=== PATIENT | female | born 1965 ===

== ENCOUNTER 2017-02-04 12:21 | Inpatient (IN) | payer SELFPAY ==
--- NOTE | 2017-02-04 13:06 | C.PDOC ---
History Of Present Illness 51 year old female presents to the ED with complaints of blood in sputum for one day with generalized weakness. As per patient, when she was 22 years old she received a 6 month treatment for TB. Patient also notes a singular episode of blood in sputum one year ago. She denies nausea, vomiting, fever, chills, sick contacts, recent travel, or chest pain. Time Seen by Provider: 02/04/17 12:59 Chief Complaint (Nursing): Flu-like Symptoms History Per: Patient, Family ( ) History/Exam Limitations: no limitations Onset/Duration Of Symptoms: Hrs Current Symptoms Are (Timing): Still Present Location Of Pain: None Sick Contacts (Context): None Associated Symptoms: Cough. denies: Fever, Chills, Sore Throat, Nausea, Vomiting Recent travel outside of the [place]: No Past Medical History Reviewed: Historical Data, Nursing Documentation, Vital Signs Vital Signs: Last Vital Signs Temp 98.5 F 02/04/17 17:12 Pulse 79 02/04/17 17:12 Resp 20 02/04/17 17:12 BP 128/74 02/04/17 17:12 Pulse Ox 97 02/04/17 18:13 Family History: States: Unknown Family Hx - Social History Hx Alcohol Use: No Hx Substance Use: No - Immunization History Hx Tetanus Toxoid Vaccination: No Hx Influenza Vaccination: No Hx Pneumococcal Vaccination: No Review Of Systems Constitutional: Positive for: Weakness (generalized weakness ). Negative for: Fever, Chills Cardiovascular: Negative for: Chest Pain, Palpitations Respiratory: Positive for: Cough. Negative for: Shortness of Breath Gastrointestinal: Negative for: Nausea, Vomiting Physical Exam - Physical Exam Appears: Non-toxic, No Acute Distress Skin: Warm, Dry, No Pale, No Rash Head: Atraumatic, Normacephalic, No Tenderness Eye(s): bilateral: Normal Inspection, PERRL, EOMI Ear(s): Bilateral: Normal Oral Mucosa: Moist Throat: Normal, No Erythema, No Exudate Neck: Normal ROM, Supple Chest: Symmetrical, No Deformity Cardiovascular: Rhythm Regular, No Murmur Respiratory: No Rales, No Rhonchi, No Wheezing, Other (clear to auscultation bilaterally ) Gastrointestinal/Abdominal: Soft, No Tenderness, No Distention, No Guarding, No Rebound Extremity: Normal ROM, No Tenderness Neurological/Psych: Oriented x3 ED Course And Treatment - Laboratory Results Result Diagrams: 02/04/17 14:03 02/04/17 14:03 O2 Sat by Pulse Oximetry: 97 (RA) - Radiology CXR: Interpreted by Me, Read By Radiologist - CT Scan/US Angio CT Other Rad Studies (CT/US): Read By Radiologist, Radiology Report Reviewed Progress Note: CXR, Chest CT, and blood work was ordered. Patient was given toradol and IV fluids. Progress - Re-Evaluation Re-evaluation Note: 02/04/17 18:12 D/W DR Thanh ZAMORA ADMIT TO DR GANT. 02/04/17 18:36 VIA TRANS PT ADVISED IS CONSIDERED HIGHLY CONTAGIOUS, ASSUMED TO HAVE TB UNTIL PROVEN OTHERWISE. PT REQUIRES ISOLATION AND ADMISSION FOR EVALUATION POSSIBLE TB - Data Reviewed Data Reviewed: Lab, Diagnostic imaging, Old records Disposition Counseled Patient/Family Regarding: Studies Performed, Diagnosis - Disposition Disposition: HOSPITALIZED Disposition Time: 18:12 Condition: STABLE Forms: [employer] (Micronesian) - POA Present On Arrival: None - Clinical Impression Clinical Impression: Hemoptysis, Abnormal chest CT - Scribe Statement The provider has reviewed the documentation as recorded by the Scribe Krista Cadena All medical record entries made by the Scribe were at my direction and personally dictated by me. I have reviewed the chart and agree that the record accurately reflects my personal performance of the history, physical exam, medical decision making, and the department course for this patient. I have also personally directed, reviewed, and agree with the discharge instructions and disposition. Decision To Admit - Pt Status Changed To: Hospital Disposition Of: Inpatient - Admit Certification Admit to Inpatient:: After my assessment, the patient will require hospitalization for at least two midnights. This is because of the severity of symptoms shown, intensity of services needed, and/or the medical risk in this patient being treated as an outpatient. - InPatient: Physician Admission Certification: I certify that this patient requires 2 or more midnights of care for the following reason:: SEE NOTE - . Bed Request Type: Regular Admitting Physician: Juan Carlos Gant Patient Diagnosis: Hemoptysis, Abnormal chest CT
[2017-02-04] MEDS ORDERED: Sodium Chloride 0.9% 1,000 ML ONE (14:08)
[2017-02-04] MEDS: Sodium Chloride 0.9% 1,000 ML IV SCH ×2 (14:12→22:34)
[2017-02-04 14:16] LABS: BASO % 0.3 % (0.0-2.0); EOS # 0.2 K/uL (0.0-0.7); EOS % 2.3 % (0.0-4.0); HEMATOCRIT 39.8 % (34.0-47.0); LYMPH # 2.4 K/uL (1.0-4.3); LYMPH % 36.1 % (20.0-40.0); MEAN CELL VOLUME 86.4 fL (81.0-99.0); MEAN CORPUSCULAR HEMOGLOBIN 29.5 pg (27.0-31.0); MEAN CORPUSCULAR HGB CONC 34.1 g/dL (33.0-37.0); MEAN PLATELET VOLUME 7.1 fL (7.2-11.7); MONO # 0.3 K/uL (0.0-0.8); MONO % 4.1 % (0.0-10.0); RED CELL DISTRIBUTION WIDTH 12.9 % (11.5-14.5); WHITE BLOOD COUNT 6.6 K/uL (4.8-10.8)
[2017-02-04 14:26] LABS: CHLORIDE 102 mmol/L (98-107); POTASSIUM 3.6 mmol/L (3.6-5.2); SODIUM 139 mmol/L (132-148)
[2017-02-04 14:29] LABS: BLOOD UREA NITROGEN 13 mg/dL (7-17); CARBON DIOXIDE 26 mmol/L (22-30); GFR AFRICAN-AMERICAN > 60; GLUCOSE,RANDOM 87 mg/dL (65-105)
[2017-02-04 14:30] LABS: CALCIUM 9.2 mg/dl (8.6-10.4)
--- NOTE | 2017-02-04 16:08 | RAD ---
HISTORY: HEMOPTYSIS COMPARISON: No prior. TECHNIQUE: Chest PA and lateral FINDINGS: LUNGS: Reticular markings are diffusely increased the predominate the apices and in the periphery suspicious for interstitial pneumonitis of indeterminate age. Clinically correlate. No alveolitis is identified. PLEURA: No significant pleural effusion identified. No pneumothorax apparent. CARDIOVASCULAR: Normal. OSSEOUS STRUCTURES: No significant abnormalities. VISUALIZED UPPER ABDOMEN: Normal. OTHER FINDINGS: None. IMPRESSION: Interstitial pneumonitis is appreciated bilaterally with potential underlying fibrosis. Clinically correlate for potential chronic versus acute superimposed chronic pneumonitis. No alveolitis pleural effusion or pneumothorax.
[2017-02-04] MEDS ORDERED: Iodixanol 320 MG/ML 200 ML BOTTLE IV ONE (16:20)
--- NOTE | 2017-02-04 17:59 | CT ---
CTA chest PE protocol Indication: Hemoptysis, shortness of breath Technique: Contiguous axial images were obtained through the chest with intravenous contrast enhancement. Sagittal and coronal reconstructions were generated and reviewed. This CT exam was performed using 1 or more of the falling dose reduction techniques: Automated exposure control, adjustment of the MAA and/or kV according to patient size, and/or use of iterative reconstruction technique. IV Contrast: 100 mL Visipaque Radiation dose (DLP): 1007.82 MGy-cm. Comparison: Chest x-ray performed 02/04/17 Findings: Visualized portions of the inferior thyroid gland appear unremarkable. The mediastinal and hilar vascular structures appear within normal limits. The heart appears within normal limits of size. No large central or segmental pulmonary embolus evident. No focal consolidation. No pleural effusion. No pneumothorax. 5 mm right upper lobe pulmonary nodule (series 8, image 14). 1.5 x 2.6 cm pleural based opacity; nodule is not excluded. 8 mm right upper lobe nodule (series 7, image 39). Pleural parenchymal opacities consistent, possibly scarring noted bilaterally within the upper lobe. Right upper lobe bronchiectasis. Limited visualized portions of the upper abdomen demonstrate possible gallstone within the gallbladder. Otherwise grossly unremarkable. No acute osseous abnormality is detected. Impression: 5 mm right upper lobe pulmonary nodule. 1.5 x 2.6 cm pleural based opacity; nodule is not excluded. 8 mm right upper lobe nodule. According to 2017 Fleischner criteria, CT at 3-6 months is recommended, then consider CT 18-24 months. Pleural parenchymal opacities consistent, possibly scarring noted bilaterally within the upper lobe. Right upper lobe bronchiectasis. Given the constellation of findings above, recommend clinical correlation and follow-up as indicated. Differential diagnosis includes but not limited to granulomatous disease, chronic tuberculosis, sarcoidosis, etc. Probable gallstone within the gallbladder. Right upper quadrant ultrasound may be considered for further evaluation.
[2017-02-04] MEDS ORDERED: Tuberculin 5 Units/0.1 ml Inj ID STA (18:15)
--- NOTE | 2017-02-04 22:04 | CP.PCM.HP ---
<JoaquinSuzy LeoncioKayleigh - Last Filed: 02/04/17 23:55> History of Present Illness - History of Present Illness History of Present Illness: CC: "Coughed blood" HPI: 51 year old female with past medical history of tuberculosis and sinusitis presents to the ED with hemoptysis. Patient states she does usually have a chronic cough ever since she had TB at the age of 22. She also recently had a cold which she used home remedies and subsided. She states she usually coughs green sputum but last night she coughed up blood 2x. She states she has chest pain when she coughs which is about a 5/10 in pain but denies chest pain at rest or when walking only when coughing. Patient states she has been able to go about her daily activities denies any shortness of breath when she walks 1 -2 blocks. Patient states she has had subjective fever and chills. Patient denies weight loss or weight gain, nausea, vomiting, diarrhea, or constipation. Patient also denies any change in appetite. Patient has not been out of the country since 2 years ago since she is originally from [place]. She lives with her brother and his family and recently her nephew arrived from [facility] about 3 months and he did have a positive PPD and is being treated with 2 tablets for about 3 months now. 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 absent: Chest Pain, Chest Pain at Rest, Lightheadedness, Palpitations - Respiratory Respiratory: Dyspnea, Hemoptysis, Change in Mucous Color (green), Pain with Coughing. absent: Dyspnea on Exertion, Wheezing - Gastrointestinal Gastrointestinal: absent: Constipation, Diarrhea, Nausea, Vomiting - Genitourinary Genitourinary: absent: Dysuria - Musculoskeletal Musculoskeletal: absent: Numbness, Tingling - Neurological Neurological: absent: Dizziness, Numbness, Headaches, Tremor, Weakness - Endocrine Endocrine: Fatigue. absent: Palpitations Past Patient History - Past Social History Smoking Status: Never Smoked - PSYCHIATRIC Hx Substance Use: No - SURGICAL HISTORY Hx Surgeries: No - ANESTHESIA Hx Anesthesia: No Meds Allergies/Adverse Reactions: Allergies Allergy/AdvReac Type Severity Reaction Status Date / Time No Known Allergies Allergy Unverified 02/04/17 12:46 Physical Exam - Constitutional Appears: No Acute Distress - Head Exam Head Exam: ATRAUMATIC, NORMAL INSPECTION, NORMOCEPHALIC - Eye Exam Eye Exam: EOMI, Normal appearance, PERRL Pupil Exam: NORMAL ACCOMODATION - ENT Exam ENT Exam: Mucous Membranes Moist - Respiratory Exam Respiratory Exam: Decreased Breath Sounds (lower lungs bilateral), NORMAL BREATHING PATTERN. absent: Rhonchi, Wheezes - Cardiovascular Exam Cardiovascular Exam: REGULAR RHYTHM, RRR, +S1, +S2. absent: Diastolic murmur, JVD, Systolic Murmur - GI/Abdominal Exam GI & Abdominal Exam: Normal Bowel Sounds, Soft. absent: Tenderness - Extremities Exam Extremities exam: Positive for: normal inspection, pedal pulses present. Negative for: pedal edema, tenderness - Back Exam Back exam: NORMAL INSPECTION - Neurological Exam Neurological exam: Alert, CN II-XII Intact, Oriented x3 - Expanded Neurological Exam Expanded Patient oriented to: person, place, time Sensory exam: Lower Extremity Light Touch: Normal, Upper Extremity Light Touch: Normal Neuro motor strength exam: Left Upper Extremity: 5, Right Upper Extremity: 5, Left Lower Extremity: 5, Right Lower Extremity: 5 Coma Scale Eye Opening: SPONTANEOUS Coma Scale Motor Response: OBEYS COMMANDS - Psychiatric Exam Psychiatric exam: Normal Affect, Normal Mood - Skin Skin Exam: Normal Color, Warm Results - Vital Signs Recent Vital Signs: Last Vital Signs Temp 97.6 F 02/04/17 21:19 Pulse 74 02/04/17 21:19 Resp 16 02/04/17 21:19 BP 100/60 02/04/17 21:19 Pulse Ox 95 02/04/17 21:19 - Labs Result Diagrams: 02/04/17 14:03 02/04/17 14:03 Labs: Laboratory Results - last 24 hr 02/04/17 02/04/17 14:03 14:03 WBC 6.6 RBC 4.61 Hgb 13.6 Hct 39.8 MCV 86.4 MCH 29.5 MCHC 34.1 RDW 12.9 Plt Count 302 MPV 7.1 L Neut % (Auto) 57.2 Lymph % (Auto) 36.1 [place] % (Auto) 4.1 Eos % (Auto) 2.3 Baso % (Auto) 0.3 Neut # 3.8 Lymph # 2.4 [place] # 0.3 Eos # 0.2 Baso # 0.0 Sodium 139 Potassium 3.6 Chloride 102 Carbon Dioxide 26 Anion Gap 14 BUN 13 Creatinine 0.5 L Est GFR ( Amer) > 60 Est GFR (Non-Af Amer) > 60 Random Glucose 87 Calcium 9.2 Assessment & Plan - Assessment and Plan (Free Text) Assessment: 1.) Shortness of breath secondary to TB vs. Bronchiectasis vs. Pulmonary fibrosis - Chest x-ray: Intersitial pneumonitis is appreciated bilaterally with potential underlying fibrosis. Clinically correlate for potential chronic versus acute superimposed chronic pneumoniits. No alveolitis pleural effusion or pneumothroax. - CT of the Chest: 5 mm right upper lobe pulmonary nodule. 1.5 x 2.6 cm pleural based opacity; nodule is not excluded. 8 mm right upper lobe nodule. According to 2017 Fleischner criteria, CT at 3-6 months is recommended, then consider CT 18-24 months. Pleural parenchymal opacities consistent, possibly scarring noted bilaterally within the upper lobe. Right upper lobe bronchiectasis. Given the constellation of findings above, recommend clinical correlation and follow-up as indicated. Differential diagnosis includes but not limited to granulomatous disease, chronic tuberculosis, sarcoidosis, etc. Probable gallstone within the gallbladder. Right upper quadrant ultrasound may be considered for further evaluation. - f/u AFB sputum cultures x3 - Pulm Consult: Dr. Mckeon--> help appreciated - Rocephin 1gm q12h - Duoneb q6h - Acetylcysteine 4ml INH Rq6 2.) Prophylaxis - Pepcid 20mg daily - Heparin SC - Respiratory Isolation - SCDs <Juan Carlos Aden P - Last Filed: 02/05/17 07:46> Results - Vital Signs Recent Vital Signs: Last Vital Signs Temp 97.8 F 02/04/17 23:58 Pulse 71 02/04/17 23:58 Resp 20 02/04/17 23:58 BP 114/70 02/04/17 23:58 Pulse Ox 96 02/04/17 23:58 - Labs Result Diagrams: 02/04/17 14:03 02/04/17 14:03 Labs: Laboratory Results - last 24 hr 02/04/17 02/04/17 14:03 14:03 WBC 6.6 RBC 4.61 Hgb 13.6 Hct 39.8 MCV 86.4 MCH 29.5 MCHC 34.1 RDW 12.9 Plt Count 302 MPV 7.1 L Neut % (Auto) 57.2 Lymph % (Auto) 36.1 [place] % (Auto) 4.1 Eos % (Auto) 2.3 Baso % (Auto) 0.3 Neut # 3.8 Lymph # 2.4 [place] # 0.3 Eos # 0.2 Baso # 0.0 Sodium 139 Potassium 3.6 Chloride 102 Carbon Dioxide 26 Anion Gap 14 BUN 13 Creatinine 0.5 L Est GFR ( Amer) > 60 Est GFR (Non-Af Amer) > 60 Random Glucose 87 Calcium 9.2 Attending/Attestation - Attestation I have personally seen and examined this patient.: Yes I have fully participated in the care of the patient.: Yes I have reviewed all pertinent clinical information: Yes Notes (Text): 02/05/17 07:33 Patient has remote h/o PTB with treatment for about 6 months in her home country , has now chronic productive cough, but blood in sputum for 2 days, no constitutional symptoms. CT chest showed b/l upper lobe pleural thickening, bronchiactais and fibrotic lesions. Plan AFB isolation Semear and culture Rocephin Empiric Pulmonary consult as my need bronch See orders for detail.
[2017-02-04 23:07] VITALS: RESP 20
[2017-02-05] MEDS: Acetylcysteine 20% Inhal Soln (4ml) INH SCH ×4 (01:09→20:13)
[2017-02-05] MEDS: Albuterol-Ipratrop 3 mg / 0.5 (3 ml) UD INH SCH ×4 (01:09→20:12)
[2017-02-05 07:48] LABS: BASO % 0.3 % (0.0-2.0); EOS # 0.2 K/uL (0.0-0.7); EOS % 2.6 % (0.0-4.0); HEMATOCRIT 36.5 % (34.0-47.0); LYMPH # 2.1 K/uL (1.0-4.3); LYMPH % 35.6 % (20.0-40.0); MEAN CELL VOLUME 87.2 fL (81.0-99.0); MEAN CORPUSCULAR HEMOGLOBIN 29.5 pg (27.0-31.0); MEAN CORPUSCULAR HGB CONC 33.9 g/dL (33.0-37.0); MEAN PLATELET VOLUME 7.2 fL (7.2-11.7); MONO # 0.3 K/uL (0.0-0.8); MONO % 5.3 % (0.0-10.0); RED CELL DISTRIBUTION WIDTH 12.8 % (11.5-14.5)
[2017-02-05 08:05] LABS: CHLORIDE 105 mmol/L (98-107)
[2017-02-05 08:06] LABS: POTASSIUM 3.8 mmol/L (3.6-5.2); SODIUM 138 mmol/L (132-148)
[2017-02-05 08:08] LABS: ALB/GLOB RATIO 1.6 (1.0-2.1); ALKALINE PHOSPHATASE 58 U/L (38-126); AST/SGOT 18 U/L (14-36); BILIRUBIN,TOTAL 0.5 mg/dL (0.2-1.3); BLOOD UREA NITROGEN 13 mg/dL (7-17); CARBON DIOXIDE 26 mmol/L (22-30); GFR AFRICAN-AMERICAN > 60
[2017-02-05 08:09] LABS: ALT/SGPT 40 U/L (9-52); CALCIUM 8.2 mg/dl (8.6-10.4); GLUCOSE,RANDOM 87 mg/dL (65-105); MAGNESIUM 1.7 mg/dL (1.6-2.3); PHOSPHOROUS 3.7 mg/dL (2.5-4.5)
--- NOTE | 2017-02-05 10:23 | CP.PCM.CON ---
<Aiyana Aldridge - Last Filed: 02/05/17 13:48> History of Present Illness - History of Present Illness History of Present Illness: Pulm consult note for Dr. Mckeon: consultation placed for hemoptysis 51 year old female with past medical history of tuberculosis and sinusitis presents to the ED with hemoptysis. Patient states she does usually have a chronic cough ever since she had TB at the age of 22. She also recently had a cold which she used home remedies and subsided. She reports maybe episodes of feeling like she has a cold a respiratory infections. She states she usually coughs green sputum but last night she coughed up blood 2x in the last week and also one month again. She states she has chest pain when she coughs which is about a 5/10 in pain but denies chest pain at rest or when walking only when coughing. Patient states she has been able to go about her daily activities denies any shortness of breath when she walks 1-2 blocks. Patient states she has had subjective fever and chills. Patient denies weight loss or weight gain, nausea, vomiting, diarrhea, or constipation. Patient also denies any change in appetite. Patient has not been out of the country since 2 years ago since she is originally from [place]. She lives with her brother and his family and recently her nephew arrived from [facility] about 3 months and he did have a positive PPD and is being treated with 2 tablets for about 3 months now. 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 absent: Chest Pain at Rest - Respiratory Respiratory: Cough, Dyspnea, Dyspnea on Exertion Additional comments: hemoptysis - Gastrointestinal Gastrointestinal: absent: Abdominal Pain, Constipation, Diarrhea, Nausea, Vomiting - Genitourinary Genitourinary: absent: Change in Urinary Stream, Difficulty Urinating Past Patient History - Past Social History Smoking Status: Never Smoked - MUSCULOSKELETAL/RHEUMATOLOGICAL Hx Falls: No - PSYCHIATRIC Hx Substance Use: No - SURGICAL HISTORY Hx Surgeries: No - ANESTHESIA Hx Anesthesia: No Meds Allergies/Adverse Reactions: Allergies Allergy/AdvReac Type Severity Reaction Status Date / Time No Known Allergies Allergy Unverified 02/04/17 12:46 - Medications Medications: Current Medications Acetylcysteine (Acetylcysteine 20%) 4 ml INH RQ6 [facility] Last Admin: 02/05/17 07:34 Dose: 4 ml Albuterol/Ipratropium (Duoneb 3 Mg/0.5 Mg (3 Ml) Ud) 3 ml INH RQ6 ADAM Last Admin: 02/05/17 07:34 Dose: 3 ml Famotidine (Pepcid) 20 mg PO DAILY [facility] Heparin Sodium (Porcine) (Heparin) 5,000 units SC Q8 [facility] Last Admin: 02/05/17 07:57 Dose: 5,000 units Sodium Chloride (Sodium Chloride 0.9%) 1,000 mls @ 200 mls/hr IV .Q5H [facility] Last Admin: 02/04/17 22:34 Dose: 200 mls/hr Ceftriaxone Sodium 1 gm/ (Dextrose) 100 mls @ 100 mls/hr IVPB Q12H [facility] Last Admin: 02/05/17 01:08 Dose: 100 mls/hr Azithromycin 500 mg/ Sodium (Chloride) 250 mls @ 250 mls/hr IVPB DAILY [facility] Physical Exam - Constitutional Appears: Non-toxic, No Acute Distress - Head Exam Head Exam: NORMAL INSPECTION, NORMOCEPHALIC - ENT Exam ENT Exam: Mucous Membranes Moist - Respiratory Exam Respiratory Exam: Decreased Breath Sounds, NORMAL BREATHING PATTERN. absent: Accessory Muscle Use, Respiratory Distress Additional comments: course breath sounds - Cardiovascular Exam Cardiovascular Exam: REGULAR RHYTHM, +S1, +S2. absent: JVD - GI/Abdominal Exam GI & Abdominal Exam: Normal Bowel Sounds, Soft. absent: Distended, Firm, Guarding, Tenderness - Extremities Exam Extremities exam: Positive for: normal inspection - Back Exam Back exam: NORMAL INSPECTION. absent: CVA tenderness (L), CVA tenderness (R), paraspinal tenderness - Neurological Exam Neurological exam: Alert, Normal Gait, Oriented x3 - Psychiatric Exam Psychiatric exam: Normal Affect, Normal Mood - Skin Skin Exam: Dry, Intact, Normal Color, Warm Results - Vital Signs Recent Vital Signs: Last Vital Signs Temp 97.8 F 02/04/17 23:58 Pulse 72 02/05/17 07:59 Resp 20 02/04/17 23:58 BP 114/70 02/04/17 23:58 Pulse Ox 96 02/04/17 23:58 - Labs Result Diagrams: 02/05/17 07:39 02/05/17 07:39 Labs: Laboratory Results - last 24 hr 02/04/17 02/04/17 02/05/17 14:03 14:03 07:39 WBC 6.6 6.0 RBC 4.61 4.18 Hgb 13.6 12.4 Hct 39.8 36.5 MCV 86.4 87.2 MCH 29.5 29.5 MCHC 34.1 33.9 RDW 12.9 12.8 Plt Count 302 276 MPV 7.1 L 7.2 Neut % (Auto) 57.2 56.2 Lymph % (Auto) 36.1 35.6 [place] % (Auto) 4.1 5.3 Eos % (Auto) 2.3 2.6 Baso % (Auto) 0.3 0.3 Neut # 3.8 3.4 Lymph # 2.4 2.1 [place] # 0.3 0.3 Eos # 0.2 0.2 Baso # 0.0 0.0 Sodium 139 Potassium 3.6 Chloride 102 Carbon Dioxide 26 Anion Gap 14 BUN 13 Creatinine 0.5 L Est GFR ( Amer) > 60 Est GFR (Non-Af Amer) > 60 Random Glucose 87 Calcium 9.2 Phosphorus Magnesium Total Bilirubin AST ALT Alkaline Phosphatase Total Protein Albumin Globulin Albumin/Globulin Ratio 02/05/17 07:39 WBC RBC Hgb Hct MCV MCH MCHC RDW Plt Count MPV Neut % (Auto) Lymph % (Auto) [place] % (Auto) Eos % (Auto) Baso % (Auto) Neut # Lymph # [place] # Eos # Baso # Sodium 138 Potassium 3.8 Chloride 105 Carbon Dioxide 26 Anion Gap 11 BUN 13 Creatinine 0.6 L Est GFR ( Amer) > 60 Est GFR (Non-Af Amer) > 60 Random Glucose 87 Calcium 8.2 L Phosphorus 3.7 Magnesium 1.7 Total Bilirubin 0.5 AST 18 ALT 40 Alkaline Phosphatase 58 Total Protein 6.0 L Albumin 3.7 Globulin 2.3 Albumin/Globulin Ratio 1.6 Assessment & Plan (1) Pneumonia Assessment and Plan: Azithromycin 500mg IVPB daily Added Zosyn 3.375gm IVPB Q6 hours for pseudomonal coverage Ceftriaxone 1 gram IVPB Q12 hours - discontinued Duonebs adam will r/o TB Status: Acute (2) Hemoptysis Assessment and Plan: CT chest showed b/l upper lobe pleural thickening, bronchiactasis and fibrotic lesions. Hemoptysis likely secondary to bronchiactasis f/u AFB sputum cultures f/u quantiferon gold f/u PPD (was placed 02/04 around 8PM) Will need to rule out active TB Status: Acute (3) Bronchiectasis Status: Acute <George Mckeon S - Last Filed: 02/05/17 18:40> Meds - Medications Medications: Current Medications Acetylcysteine (Acetylcysteine 20%) 4 ml INH RQ6 [facility] Last Admin: 02/05/17 13:21 Dose: Not Given Albuterol/Ipratropium (Duoneb 3 Mg/0.5 Mg (3 Ml) Ud) 3 ml INH RQ6 [facility] Last Admin: 02/05/17 13:21 Dose: 3 ml Famotidine (Pepcid) 20 mg PO BID [facility] Last Admin: 02/05/17 18:19 Dose: 20 mg Heparin Sodium (Porcine) (Heparin) 5,000 units SC Q12 [facility] Sodium Chloride (Sodium Chloride 0.9%) 1,000 mls @ 200 mls/hr IV .Q5H [facility] Last Admin: 02/05/17 14:11 Dose: 200 mls/hr Azithromycin 500 mg/ Sodium (Chloride) 250 mls @ 250 mls/hr IVPB DAILY [facility] Last Admin: 02/05/17 11:00 Dose: 250 mls/hr Piperacillin Sod/Tazobactam Sod (Zosyn 3.375 Gm Iv Premix) 3.375 gm in 50 mls @ 100 mls/hr IVPB Q6 [facility] Last Admin: 02/05/17 18:19 Dose: 100 mls/hr Saccharomyces Boulardii (Florastor) 250 mg PO BID [facility] Last Admin: 02/05/17 18:19 Dose: 250 mg Results - Vital Signs Recent Vital Signs: Last Vital Signs Temp 98.6 F 02/05/17 12:15 Pulse 82 02/05/17 12:15 Resp 20 02/05/17 12:15 BP 131/83 02/05/17 12:15 Pulse Ox 97 02/05/17 12:15 - Labs Result Diagrams: 02/05/17 07:39 02/05/17 07:39 Labs: Laboratory Results - last 24 hr 02/05/17 02/05/17 02/05/17 07:39 07:39 11:49 WBC 6.0 RBC 4.18 Hgb 12.4 Hct 36.5 MCV 87.2 MCH 29.5 MCHC 33.9 RDW 12.8 Plt Count 276 MPV 7.2 Neut % (Auto) 56.2 Lymph % (Auto) 35.6 [place] % (Auto) 5.3 Eos % (Auto) 2.6 Baso % (Auto) 0.3 Neut # 3.4 Lymph # 2.1 [place] # 0.3 Eos # 0.2 Baso # 0.0 Sodium 138 Potassium 3.8 Chloride 105 Carbon Dioxide 26 Anion Gap 11 BUN 13 Creatinine 0.6 L Est GFR ( Amer) > 60 Est GFR (Non-Af Amer) > 60 Random Glucose 87 Calcium 8.2 L Phosphorus 3.7 Magnesium 1.7 Total Bilirubin 0.5 AST 18 ALT 40 Alkaline Phosphatase 58 Total Protein 6.0 L Albumin 3.7 Globulin 2.3 Albumin/Globulin Ratio 1.6 Procalcitonin 0.05 L
[2017-02-05] MEDS: Azithromycin 500 MG in Sodium Chloride 0.9% 250 ML IVPB SCH (11:00)
[2017-02-05] MEDS: Piperacill/Tazo 3.375gm in Dex 3.375 GM/50 ML BAG IVPB SCH ×2 (14:10→18:19)
[2017-02-05] MEDS: Sodium Chloride 0.9% 1,000 ML IV SCH ×2 (14:11)
--- NOTE | 2017-02-05 14:38 | CP.PCM.CON ---
History of Present Illness - History of Present Illness History of Present Illness: dictated Past Patient History - Past Social History Smoking Status: Never Smoked - MUSCULOSKELETAL/RHEUMATOLOGICAL Hx Falls: No - PSYCHIATRIC Hx Substance Use: No - SURGICAL HISTORY Hx Surgeries: No - ANESTHESIA Hx Anesthesia: No Meds Allergies/Adverse Reactions: Allergies Allergy/AdvReac Type Severity Reaction Status Date / Time No Known Allergies Allergy Unverified 02/04/17 12:46 - Medications Medications: Current Medications Acetylcysteine (Acetylcysteine 20%) 4 ml INH RQ6 [facility] Last Admin: 02/05/17 13:21 Dose: Not Given Albuterol/Ipratropium (Duoneb 3 Mg/0.5 Mg (3 Ml) Ud) 3 ml INH RQ6 [facility] Last Admin: 02/05/17 13:21 Dose: 3 ml Famotidine (Pepcid) 20 mg PO BID [facility] Heparin Sodium (Porcine) (Heparin) 5,000 units SC Q12 [facility] Sodium Chloride (Sodium Chloride 0.9%) 1,000 mls @ 200 mls/hr IV .Q5H [facility] Last Admin: 02/05/17 14:11 Dose: 200 mls/hr Azithromycin 500 mg/ Sodium (Chloride) 250 mls @ 250 mls/hr IVPB DAILY [facility] Last Admin: 02/05/17 11:00 Dose: 250 mls/hr Piperacillin Sod/Tazobactam Sod (Zosyn 3.375 Gm Iv Premix) 3.375 gm in 50 mls @ 100 mls/hr IVPB Q6 [facility] Last Admin: 02/05/17 14:10 Dose: 100 mls/hr Results - Vital Signs Recent Vital Signs: Last Vital Signs Temp 98.6 F 02/05/17 12:15 Pulse 82 02/05/17 12:15 Resp 20 02/05/17 12:15 BP 131/83 02/05/17 12:15 Pulse Ox 97 02/05/17 12:15 - Labs Result Diagrams: 02/05/17 07:39 02/05/17 07:39 Labs: Laboratory Results - last 24 hr 02/05/17 02/05/17 02/05/17 07:39 07:39 11:49 WBC 6.0 RBC 4.18 Hgb 12.4 Hct 36.5 MCV 87.2 MCH 29.5 MCHC 33.9 RDW 12.8 Plt Count 276 MPV 7.2 Neut % (Auto) 56.2 Lymph % (Auto) 35.6 Smyth % (Auto) 5.3 Eos % (Auto) 2.6 Baso % (Auto) 0.3 Neut # 3.4 Lymph # 2.1 Smyth # 0.3 Eos # 0.2 Baso # 0.0 Sodium 138 Potassium 3.8 Chloride 105 Carbon Dioxide 26 Anion Gap 11 BUN 13 Creatinine 0.6 L Est GFR ( Amer) > 60 Est GFR (Non-Af Amer) > 60 Random Glucose 87 Calcium 8.2 L Phosphorus 3.7 Magnesium 1.7 Total Bilirubin 0.5 AST 18 ALT 40 Alkaline Phosphatase 58 Total Protein 6.0 L Albumin 3.7 Globulin 2.3 Albumin/Globulin Ratio 1.6 Procalcitonin 0.05 L
--- NOTE | 2017-02-05 15:33 | CP.PCM.PN ---
<Pineda Roman - Last Filed: 02/05/17 15:45> Subjective - Date & Time of Evaluation Date of Evaluation: 02/05/17 Time of Evaluation: 15:28 - Subjective Subjective: Patient has been seen and examined. She states her SOB and chest pain has improved from yesterday. No overnight events reported. She denies any fever chills, palpitations, abdominal pain, n/v/d, constipation, or urinary symptoms. Patient still complains of dry cough which has also improved. Objective - Vital Signs/Intake and Output Vital Signs (last 24 hours): Temp Pulse Resp BP Pulse Ox 98.6 F 82 20 131/83 97 02/05/17 12:15 02/05/17 12:15 02/05/17 12:15 02/05/17 12:15 02/05/17 12:15 - Medications Medications: Current Medications Acetylcysteine (Acetylcysteine 20%) 4 ml INH RQ6 [facility] Last Admin: 02/05/17 13:21 Dose: Not Given Albuterol/Ipratropium (Duoneb 3 Mg/0.5 Mg (3 Ml) Ud) 3 ml INH RQ6 [facility] Last Admin: 02/05/17 13:21 Dose: 3 ml Famotidine (Pepcid) 20 mg PO BID [facility] Heparin Sodium (Porcine) (Heparin) 5,000 units SC Q12 [facility] Sodium Chloride (Sodium Chloride 0.9%) 1,000 mls @ 200 mls/hr IV .Q5H [facility] Last Admin: 02/05/17 14:11 Dose: 200 mls/hr Azithromycin 500 mg/ Sodium (Chloride) 250 mls @ 250 mls/hr IVPB DAILY [facility] Last Admin: 02/05/17 11:00 Dose: 250 mls/hr Piperacillin Sod/Tazobactam Sod (Zosyn 3.375 Gm Iv Premix) 3.375 gm in 50 mls @ 100 mls/hr IVPB Q6 [facility] Last Admin: 02/05/17 14:10 Dose: 100 mls/hr - Labs Labs: 02/05/17 07:39 02/05/17 07:39 - Constitutional Appears: Non-toxic, No Acute Distress - Head Exam Head Exam: ATRAUMATIC, NORMAL INSPECTION, NORMOCEPHALIC - Eye Exam Eye Exam: Normal appearance - ENT Exam ENT Exam: Mucous Membranes Moist - Neck Exam Neck Exam: absent: Lymphadenopathy - Respiratory Exam Respiratory Exam: Rales (RUL - Inpiratory). absent: Clear to Ausculation Bilateral - Cardiovascular Exam Cardiovascular Exam: RRR, +S1, +S2 - GI/Abdominal Exam GI & Abdominal Exam: Soft, Tenderness - Extremities Exam Extremities Exam: Normal Capillary Refill. absent: Pedal Edema - Neurological Exam Neurological Exam: Alert, Awake, Oriented x3 - Psychiatric Exam Psychiatric exam: Normal Affect, Normal Mood - Skin Skin Exam: Dry, Intact, Normal Color, Warm Assessment and Plan - Assessment and Plan (Free Text) Assessment: 51 year old female with past medical history of tuberculosis and sinusitis who presented to the ED complaining of hemoptysis. CT impression read "- CT of the Chest: 5 mm right upper lobe pulmonary nodule. 1.5 x 2.6 cm pleural based opacity; nodule is not excluded. 8 mm right upper lobe nodule. According to 2017 Fleischner criteria, CT at 3-6 months is recommended, then consider CT 18-24 months. Pleural parenchymal opacities consistent, possibly scarring noted bilaterally within the upper lobe. Right upper lobe bronchiectasis. Given the constellation of findings above, recommend clinical correlation and follow-up as indicated. Differential diagnosis includes but not limited to granulomatous disease, chronic tuberculosis, sarcoidosis, etc. Probable gallstone within the gallbladder. Right upper quadrant ultrasound may be considered for further evaluation." Plan: Shortness of breath secondary to Pneumonia vs TB vs. Bronchiectasis vs. Pulmonary fibrosis - Chest x-ray: Intersitial pneumonitis is appreciated bilaterally with potential underlying fibrosis. Clinically correlate for potential chronic versus acute superimposed chronic pneumoniits. No alveolitis pleural effusion or pneumothroax. - f/u AFB sputum cultures x3 - Pulm Consult: Dr. Mckeon - recs appreciated - ID consulted - recs appreciated. - Zosyn 3.375 IVP q6 added by Pulm for Pseudomal coverage. Azithromycin 500mg IVPB daily per pulm - Rocephin 1gm q12h -DC'd - Duoneb [facility] - Acetylcysteine 4ml INH Rq6 - ProCal 0.05 -AFB sputum cultures, Quantiferon gold, and PPD pending (was placed 02/04 around 8pm, will follow up tomorrow). -Strep cultures pending, Sputum Mycobacterium DNA by PCR will show if TB infection is active Hemoptysis -likely 2/2 to bronchiactasis -AFB, quantiferon gold, and PPD pending -need to rule out Active TB Prophylaxis - Pepcid 20mg daily - Heparin SC - Respiratory Isolation - SCDs - Florastor BID Patient has been discussed with Attending Pineda Roman - PGY-1 <Kevin Shaffer - Last Filed: 02/05/17 19:29> Objective - Vital Signs/Intake and Output Vital Signs (last 24 hours): Temp Pulse Resp BP Pulse Ox 98.4 F 90 20 115/70 97 02/05/17 15:30 02/05/17 15:30 02/05/17 15:30 02/05/17 15:30 02/05/17 15:30 - Medications Medications: Current Medications Acetylcysteine (Acetylcysteine 20%) 4 ml INH RQ6 [facility] Last Admin: 02/05/17 13:21 Dose: Not Given Albuterol/Ipratropium (Duoneb 3 Mg/0.5 Mg (3 Ml) Ud) 3 ml INH RQ6 [facility] Last Admin: 02/05/17 13:21 Dose: 3 ml Famotidine (Pepcid) 20 mg PO BID [facility] Last Admin: 02/05/17 18:19 Dose: 20 mg Heparin Sodium (Porcine) (Heparin) 5,000 units SC Q12 [facility] Sodium Chloride (Sodium Chloride 0.9%) 1,000 mls @ 200 mls/hr IV .Q5H [facility] Last Admin: 02/05/17 14:11 Dose: 200 mls/hr Azithromycin 500 mg/ Sodium (Chloride) 250 mls @ 250 mls/hr IVPB DAILY [facility] Last Admin: 02/05/17 11:00 Dose: 250 mls/hr Piperacillin Sod/Tazobactam Sod (Zosyn 3.375 Gm Iv Premix) 3.375 gm in 50 mls @ 100 mls/hr IVPB Q6 [facility] Last Admin: 02/05/17 18:19 Dose: 100 mls/hr Saccharomyces Boulardii (Florastor) 250 mg PO BID [facility] Last Admin: 02/05/17 18:19 Dose: 250 mg - Labs Labs: 02/05/17 07:39 02/05/17 07:39 Attending/Attestation - Attestation I have personally seen and examined this patient.: Yes I have fully participated in the care of the patient.: Yes I have reviewed all pertinent clinical information, including history, physical exam and plan: Yes Notes (Text): 02/05/17 19:26 Patient was seen and examined at 9:30 AM 02/05/17 554 P Exam, assessment and plan were thoroughly gone over with the resident. Upon ROS: Cough with green phlegm but no hemoptysis since admission NO SOB NO CP NO abdominal pain NO n/v/d/c NO other complaints upon FULL ROS Also on Exam: Respiratory: RUL inspiratory crackles Assessments: 1). Possible TB in patient with Hx of TB and Bronchiectasis Zosyn Azithromycin F/U PPD 02/06/17 F/U Sputum AFT Cultures x 3 starting 02/05/17 F/U Sputum Mycobacterium DNA PCR F/U Quanteferon Gold Kevin Shaffer D.O.
[2017-02-05] MEDS: Saccharomyces Boulardi 250 mg Cap PO SCH (18:19)
[2017-02-06] MEDS: Piperacill/Tazo 3.375gm in Dex 3.375 GM/50 ML BAG IVPB SCH ×4 (00:58→17:10)
[2017-02-06] MEDS: Albuterol-Ipratrop 3 mg / 0.5 (3 ml) UD INH SCH ×4 (01:09→20:30)
[2017-02-06] MEDS: Acetylcysteine 20% Inhal Soln (4ml) INH SCH ×4 (01:09→20:31)
--- NOTE | 2017-02-06 06:21 | CON ---
INFECTIOUS DISEASE CONSULTATION DATE: REQUESTED BY: Kevin Shaffer DO HISTORY OF PRESENT ILLNESS: This patient is a 51-year-old female. She speaks only [place]ian. Has history of having TB at age of 22. She right now is 51 and she gives history of having cold and she used her home remedies and it got better and she coughed up small amount of blood and right now she is not having that. She feels slightly better. She denies any chest pain. No shortness of breath. She does have subjective fever and chills. She did have a relative who came from [facility] and has a positive PPD and is being treated with 2 tablets for about 3 months now, so she has exposure to a positive PPD. She has had previous TB. She recently had a cold. She does suffer from sinusitis. She did have small amount of blood. Denies any poor appetite. Denies any other problems. SOCIAL HISTORY: No alcohol, no drug abuse. ALLERGIES: SHE IS NOT ALLERGIC TO ANY MEDICINE. Denies any other illnesses. She denies any chest pain. No shortness of breath, no abdominal pain, no nausea. Does come in with hemoptysis and may be mild dyspnea, but no nausea, no vomiting, no diarrhea, no urinary complaints, no numbness, no tingling, no skin problems, no dizziness, no history of smoking. She does give history of TB at age 22. She was started on medications. She is on Zosyn at this time and Zithromax and acetylcysteine, DuoNeb, famotidine, and IV fluid. PHYSICAL EXAMINATION VITAL SIGNS: I find her temperature is 98.6, pulse 82, blood pressure 131/83 and respirations are 20. HEENT: Head is atraumatic and normocephalic. Pupils are reacting to light. Throat; no congestion, no thrush seen. NECK: Supple. HEART: S1 and S2 is regular. LUNGS: Left lung has some coarse breath sounds. Otherwise, clear. No rhonchi, no wheezing. ABDOMEN: Soft and nontender. No guarding, no rigidity present. EXTREMITIES: Have no edema, clubbing or cyanosis. LABORATORY DATA: White count is 6, hemoglobin 12.4, hematocrit 36.5 and platelet count is 276. Sodium was 138, potassium 3.8, chloride is 105, CO2 is 26, anion gap is 11, BUN is 13, creatinine 0.6 and there is no cultures at this time. I am reviewing the orders. Pulmonary consult has been called and there is sputum, Gold QuantiFERON has been ordered and AFB smears have been ordered, x3 will be needed and I am told her PPD is positive and Gold QuantiFERON test is ordered. It will be very important to see if these AFBs are negative or positive. She has a CAT scan done. Chest x-ray was done. Chest x-ray shows interstitial pneumonitis bilaterally and potentially underlying fibrosis, chronic coagulation for potential chronic versus acute superimposed chronic pneumonitis, no alveolitis, pleural effusion and pneumothorax. A chest CT was done and chest CT showed 5 mm right upper pulmonary nodule. Nodule is not excluded. An 8 mm right upper nodule, so there are 5 mm and 8 mm nodules, which will need followup, parenchymal opacities consistent with possible scarring and bilateral villi within the upper lobe. Right upper lobe bronchiectasis and given the constellation, they want to include to rule out TB as well as sarcoidosis. So, we will follow up with the Pulmonary. At this time, I agree with Zosyn and Zithromax and to be followed and also to order regular sputum culture. We will follow. We will need to rule out interstitial pneumonitis and since she has hemoptysis, rule out tuberculosis. Polly Miller MD
[2017-02-06 07:25] LABS: BASO % 0.3 % (0.0-2.0); EOS # 0.2 K/uL (0.0-0.7); EOS % 2.3 % (0.0-4.0); HEMATOCRIT 36.6 % (34.0-47.0); LYMPH # 1.9 K/uL (1.0-4.3); LYMPH % 29.1 % (20.0-40.0); MEAN CELL VOLUME 87.2 fL (81.0-99.0); MEAN CORPUSCULAR HEMOGLOBIN 29.5 pg (27.0-31.0); MEAN CORPUSCULAR HGB CONC 33.8 g/dL (33.0-37.0); MONO # 0.3 K/uL (0.0-0.8); MONO % 5.2 % (0.0-10.0); RED CELL DISTRIBUTION WIDTH 13.3 % (11.5-14.5); WHITE BLOOD COUNT 6.6 K/uL (4.8-10.8)
[2017-02-06 07:37] LABS: CHLORIDE 101 mmol/L (98-107); POTASSIUM 3.8 mmol/L (3.6-5.2); SODIUM 136 mmol/L (132-148)
[2017-02-06 07:39] LABS: BILIRUBIN,TOTAL 0.8 mg/dL (0.2-1.3); GFR AFRICAN-AMERICAN > 60
[2017-02-06 07:40] LABS: ALB/GLOB RATIO 1.6 (1.0-2.1); ALKALINE PHOSPHATASE 56 U/L (38-126); ALT/SGPT 43 U/L (9-52); AST/SGOT 20 U/L (14-36); BLOOD UREA NITROGEN 16 mg/dL (7-17); CALCIUM 8.4 mg/dl (8.6-10.4); CARBON DIOXIDE 25 mmol/L (22-30); GLUCOSE,RANDOM 98 mg/dL (65-105); MAGNESIUM 1.9 mg/dL (1.6-2.3); PHOSPHOROUS 4.1 mg/dL (2.5-4.5); TOTAL PROTEIN 6.4 g/dL (6.3-8.3)
[2017-02-06] MEDS: Saccharomyces Boulardi 250 mg Cap PO SCH ×2 (09:40→17:10)
[2017-02-06] MEDS: Azithromycin 500 MG in Sodium Chloride 0.9% 250 ML IVPB SCH (09:40)
[2017-02-06 10:55] LABS: LEGIONELLA AG URINE NEGATIVE (NEGATIVE)
[2017-02-06 11:13] LABS: H INFLUENZAE B NOT REQUIRED (NEGATIVE); N MENINGITIS ACY/W135 NOT REQUIRED (NEGATIVE); N MENINGITIS B/ECOLI K1 NOT REQUIRED (NEGATIVE)
--- NOTE | 2017-02-06 13:56 | CP.PCM.PN ---
<Pineda Roman - Last Filed: 02/06/17 17:02> Subjective - Date & Time of Evaluation Date of Evaluation: 02/06/17 Time of Evaluation: 13:53 - Subjective Subjective: Patient has been seen and examined. She states her SOB and chest pain has improved from yesterday. No overnight events reported. She denies any fever chills, palpitations, abdominal pain, n/v/d, constipation, or urinary symptoms. Patient states her cough has improved. She is having trouble giving sputum. Objective - Vital Signs/Intake and Output Vital Signs (last 24 hours): Temp Pulse Resp BP Pulse Ox 98.1 F 95 H 20 120/65 96 02/06/17 08:00 02/06/17 08:00 02/06/17 08:00 02/06/17 08:00 02/06/17 08:00 - Medications Medications: Current Medications Acetylcysteine (Acetylcysteine 20%) 4 ml INH RQ6 [facility] Last Admin: 02/06/17 13:16 Dose: Not Given Albuterol/Ipratropium (Duoneb 3 Mg/0.5 Mg (3 Ml) Ud) 3 ml INH RQ6 [facility] Last Admin: 02/06/17 13:14 Dose: 3 ml Famotidine (Pepcid) 20 mg PO BID [facility] Last Admin: 02/06/17 09:40 Dose: 20 mg Heparin Sodium (Porcine) (Heparin) 5,000 units SC Q12 [facility] Last Admin: 02/06/17 09:40 Dose: 5,000 units Azithromycin 500 mg/ Sodium (Chloride) 250 mls @ 250 mls/hr IVPB DAILY [facility] Last Admin: 02/06/17 09:40 Dose: 250 mls/hr Piperacillin Sod/Tazobactam Sod (Zosyn 3.375 Gm Iv Premix) 3.375 gm in 50 mls @ 100 mls/hr IVPB Q6 [facility] Last Admin: 02/06/17 12:04 Dose: 100 mls/hr Saccharomyces Boulardii (Florastor) 250 mg PO BID [facility] Last Admin: 02/06/17 09:40 Dose: 250 mg - Labs Labs: 02/06/17 07:13 02/06/17 07:13 - Additional Findings Additional findings: - Constitutional Appears: Non-toxic, No Acute Distress - Head Exam Head Exam: ATRAUMATIC, NORMAL INSPECTION, NORMOCEPHALIC - Eye Exam Eye Exam: Normal appearance - ENT Exam ENT Exam: Mucous Membranes Moist - Neck Exam Neck Exam: absent: Lymphadenopathy - Respiratory Exam Respiratory Exam: Rales (Improved,RUL - Inpiratory). absent: Clear to Ausculation Bilateral - Cardiovascular Exam Cardiovascular Exam: RRR, +S1, +S2 - GI/Abdominal Exam GI & Abdominal Exam: Soft, Tenderness - Extremities Exam Extremities Exam: Normal Capillary Refill. absent: Pedal Edema - Neurological Exam Neurological Exam: Alert, Awake, Oriented x3 - Psychiatric Exam Psychiatric exam: Normal Affect, Normal Mood - Skin Skin Exam: Dry, Intact, Normal Color, Warm Assessment and Plan - Assessment and Plan (Free Text) Assessment: 51 year old female with past medical history of tuberculosis and sinusitis who presented to the ED complaining of hemoptysis. CT impression read "- CT of the Chest: 5 mm right upper lobe pulmonary nodule. 1.5 x 2.6 cm pleural based opacity; nodule is not excluded. 8 mm right upper lobe nodule. According to 2017 Fleischner criteria, CT at 3-6 months is recommended, then consider CT 18-24 months. Pleural parenchymal opacities consistent, possibly scarring noted bilaterally within the upper lobe. Right upper lobe bronchiectasis. Given the constellation of findings above, recommend clinical correlation and follow-up as indicated. Differential diagnosis includes but not limited to granulomatous disease, chronic tuberculosis, sarcoidosis, etc. Probable gallstone within the gallbladder. Right upper quadrant ultrasound may be considered for further evaluation." Plan: Shortness of breath secondary to Pneumonia vs TB vs. Bronchiectasis vs. Pulmonary fibrosis - Chest x-ray: Intersitial pneumonitis is appreciated bilaterally with potential underlying fibrosis. Clinically correlate for potential chronic versus acute superimposed chronic pneumoniits. No alveolitis pleural effusion or pneumothroax. - f/u AFB sputum cultures x3 - Pulm Consult: Dr. Mckeon - recs appreciated - ID consulted - recs appreciated. - Zosyn 3.375 IVP q6 added by Pulm for Pseudomal coverage. Azithromycin 500mg IVPB daily per pulm - Rocephin 1gm q12h -DC'd - Duoneb [facility] - Acetylcysteine 4ml INH Rq6 - ProCal 0.05 -AFB sputum cultures, Quantiferon gold, and PPD pending (was placed 02/04 around 8pm, will follow up tomorrow). -Strep cultures-NEGATIVE, Sputum Mycobacterium DNA by PCR will show if TB infection is active -Ur. L.Pneumophila Ag. NEGATIVE || INFLUENZA A&B NEGATIVE Hemoptysis -likely 2/2 to bronchiactasis -AFB, quantiferon gold, and PPD pending (to be checked tonight around 8pm) -need to rule out Active TB -Sputum culture Gram stain shows Many polymorponuclear WBC's, Moderate Epithelial cells, moderate Gram postive cocci in chains, few gram negative rods , and few yeast. Culture results to follow. Prophylaxis - Pepcid 20mg daily - Heparin SC - Respiratory Isolation - SCDs - Florastor BID Dispo: Will need to get [facility] or [facility] chest clinic involved before DC. Patient has been discussed with Attending Pineda Roman - PGY-1 <Kevin Shaffer - Last Filed: 02/06/17 20:35> Objective - Vital Signs/Intake and Output Vital Signs (last 24 hours): Temp Pulse Resp BP Pulse Ox 98.3 F 83 20 106/61 96 02/06/17 15:29 02/06/17 15:29 02/06/17 15:29 02/06/17 15:29 02/06/17 15:29 Intake and Output: 02/06/17 02/07/17 18:59 06:59 Intake Total 780 Balance 780 - Medications Medications: Current Medications Acetylcysteine (Acetylcysteine 20%) 4 ml INH RQ6 [facility] Last Admin: 02/06/17 13:16 Dose: Not Given Albuterol/Ipratropium (Duoneb 3 Mg/0.5 Mg (3 Ml) Ud) 3 ml INH RQ6 [facility] Last Admin: 02/06/17 13:14 Dose: 3 ml Famotidine (Pepcid) 20 mg PO BID [facility] Last Admin: 02/06/17 17:10 Dose: 20 mg Heparin Sodium (Porcine) (Heparin) 5,000 units SC Q12 [facility] Last Admin: 02/06/17 09:40 Dose: 5,000 units Azithromycin 500 mg/ Sodium (Chloride) 250 mls @ 250 mls/hr IVPB DAILY [facility] Last Admin: 02/06/17 09:40 Dose: 250 mls/hr Piperacillin Sod/Tazobactam Sod (Zosyn 3.375 Gm Iv Premix) 3.375 gm in 50 mls @ 100 mls/hr IVPB Q6 [facility] Last Admin: 02/06/17 17:10 Dose: 100 mls/hr Saccharomyces Boulardii (Florastor) 250 mg PO BID [facility] Last Admin: 02/06/17 17:10 Dose: 250 mg - Labs Labs: 02/06/17 07:13 02/06/17 07:13 Attending/Attestation - Attestation I have personally seen and examined this patient.: Yes I have fully participated in the care of the patient.: Yes I have reviewed all pertinent clinical information, including history, physical exam and plan: Yes Notes (Text): 02/06/17 20:29 Patient was seen and examined at 1:00 PM 02/06/17 554 P Exam, assessment and plan were thoroughly gone over with the resident. Upon ROS: Cough with green phlegm but no hemoptysis since admission. She states that this has improved. NO SOB NO CP NO abdominal pain NO n/v/d/c NO other complaints upon FULL ROS Also on Exam: Respiratory: RUL inspiratory crackles Assessments: 1). Possible TB in patient with Hx of TB and Bronchiectasis Zosyn Azithromycin PPD 02/06/17 as read by me at the time of my exam on Right Anterior Forearm but this will have to be read at 8 PM tonight F/U Sputum AFT Cultures x 3 starting 02/05/17 F/U Sputum Mycobacterium DNA PCR F/U Quanteferon Gold Preliminary Sputum Culture results noted. Kevin Shaffer D.O.
--- NOTE | 2017-02-06 14:19 | CP.PCM.PN ---
<Luis CarlosAiyana - Last Filed: 02/06/17 14:15> Subjective - Date & Time of Evaluation Date of Evaluation: 02/06/17 Time of Evaluation: 08:00 - Subjective Subjective: Pulm consult note for Dr. Mckeon: Patient seen and examined at bedside this morning. She reports only mild shortness of breath with a cough but states this is improving. She denies more hemotysis. Denies fever/chills. No new complaints. Objective - Vital Signs/Intake and Output Vital Signs (last 24 hours): Temp Pulse Resp BP Pulse Ox 98.1 F 95 H 20 120/65 96 02/06/17 08:00 02/06/17 08:00 02/06/17 08:00 02/06/17 08:00 02/06/17 08:00 - Medications Medications: Current Medications Acetylcysteine (Acetylcysteine 20%) 4 ml INH RQ6 [facility] Last Admin: 02/06/17 13:16 Dose: Not Given Albuterol/Ipratropium (Duoneb 3 Mg/0.5 Mg (3 Ml) Ud) 3 ml INH RQ6 [facility] Last Admin: 02/06/17 13:14 Dose: 3 ml Famotidine (Pepcid) 20 mg PO BID [facility] Last Admin: 02/06/17 09:40 Dose: 20 mg Heparin Sodium (Porcine) (Heparin) 5,000 units SC Q12 [facility] Last Admin: 02/06/17 09:40 Dose: 5,000 units Azithromycin 500 mg/ Sodium (Chloride) 250 mls @ 250 mls/hr IVPB DAILY [facility] Last Admin: 02/06/17 09:40 Dose: 250 mls/hr Piperacillin Sod/Tazobactam Sod (Zosyn 3.375 Gm Iv Premix) 3.375 gm in 50 mls @ 100 mls/hr IVPB Q6 [facility] Last Admin: 02/06/17 12:04 Dose: 100 mls/hr Saccharomyces Boulardii (Florastor) 250 mg PO BID [facility] Last Admin: 02/06/17 09:40 Dose: 250 mg - Labs Labs: 02/06/17 07:13 02/06/17 07:13 - Constitutional Appears: Non-toxic, No Acute Distress - Head Exam Head Exam: ATRAUMATIC, NORMAL INSPECTION - Eye Exam Eye Exam: EOMI - ENT Exam ENT Exam: Mucous Membranes Moist - Respiratory Exam Respiratory Exam: Decreased Breath Sounds, NORMAL BREATHING PATTERN. absent: Accessory Muscle Use, Clear to Ausculation Bilateral, Rales, Rhonchi, Wheezes, Respiratory Distress - Cardiovascular Exam Cardiovascular Exam: REGULAR RHYTHM, +S1, +S2 - GI/Abdominal Exam GI & Abdominal Exam: Soft, Tenderness, Normal Bowel Sounds. absent: Distended, Firm, Guarding - Extremities Exam Extremities Exam: Normal Inspection - Neurological Exam Neurological Exam: Alert, Awake, Normal Gait, Oriented x3 - Psychiatric Exam Psychiatric exam: Normal Affect, Normal Mood - Skin Skin Exam: Dry, Intact, Normal Color, Warm Assessment and Plan (1) Pneumonia Assessment & Plan: Azithromycin 500mg IVPB daily Zosyn 3.375gm IVPB Q6 hours for pseudomonal coverage Ceftriaxone 1 gram IVPB Q12 hours - discontinued Duonebs [facility] will r/o TB Procalcitonin negative Influenza negative Negative Legionella/Strep pneumoniae f/u mycoplasma Status: Acute (2) Hemoptysis Assessment & Plan: CT chest showed b/l upper lobe pleural thickening, bronchiactasis and fibrotic lesions. Hemoptysis likely secondary to bronchiactasis f/u AFB sputum cultures f/u quantiferon gold f/u PPD (was placed 02/04 around 8PM) Will need to rule out active TB Status: Acute (3) Bronchiectasis Status: Acute <George Mckeon S - Last Filed: 02/06/17 16:40> Subjective - Date & Time of Evaluation Time of Evaluation: 12:45 Objective - Vital Signs/Intake and Output Vital Signs (last 24 hours): Temp Pulse Resp BP Pulse Ox 98.3 F 83 20 106/61 96 02/06/17 15:29 02/06/17 15:29 02/06/17 15:29 02/06/17 15:29 02/06/17 15:29 Intake and Output: 02/06/17 02/06/17 06:59 18:59 Intake Total 780 Balance 780 - Medications Medications: Current Medications Acetylcysteine (Acetylcysteine 20%) 4 ml INH RQ6 [facility] Last Admin: 02/06/17 13:16 Dose: Not Given Albuterol/Ipratropium (Duoneb 3 Mg/0.5 Mg (3 Ml) Ud) 3 ml INH RQ6 [facility] Last Admin: 02/06/17 13:14 Dose: 3 ml Famotidine (Pepcid) 20 mg PO BID [facility] Last Admin: 02/06/17 09:40 Dose: 20 mg Heparin Sodium (Porcine) (Heparin) 5,000 units SC Q12 [facility] Last Admin: 02/06/17 09:40 Dose: 5,000 units Azithromycin 500 mg/ Sodium (Chloride) 250 mls @ 250 mls/hr IVPB DAILY [facility] Last Admin: 02/06/17 09:40 Dose: 250 mls/hr Piperacillin Sod/Tazobactam Sod (Zosyn 3.375 Gm Iv Premix) 3.375 gm in 50 mls @ 100 mls/hr IVPB Q6 [facility] Last Admin: 02/06/17 12:04 Dose: 100 mls/hr Saccharomyces Boulardii (Florastor) 250 mg PO BID [facility] Last Admin: 02/06/17 09:40 Dose: 250 mg - Labs Labs: 02/06/17 07:13 02/06/17 07:13 Attending/Attestation - Attestation I have personally seen and examined this patient.: Yes I have fully participated in the care of the patient.: Yes I have reviewed all pertinent clinical information, including history, physical exam and plan: Yes Notes (Text): 02/06/17 16:40 Patient seen and examined. Continue IV antibiotics Unlikely tuberculosis
--- NOTE | 2017-02-06 20:49 | CP.PCM.PN ---
Subjective - Date & Time of Evaluation Date of Evaluation: 02/06/17 Time of Evaluation: 20:46 - Subjective Subjective: Patient was seen and examined at bedside in the evening. PPD was examined and negative. Objective - Vital Signs/Intake and Output Vital Signs (last 24 hours): Temp Pulse Resp BP Pulse Ox 98.3 F 83 20 106/61 96 02/06/17 15:29 02/06/17 15:29 02/06/17 15:29 02/06/17 15:29 02/06/17 15:29 Intake and Output: 02/06/17 02/07/17 18:59 06:59 Intake Total 780 Balance 780 - Medications Medications: Current Medications Acetylcysteine (Acetylcysteine 20%) 4 ml INH RQ6 [facility] Last Admin: 02/06/17 20:31 Dose: Not Given Albuterol/Ipratropium (Duoneb 3 Mg/0.5 Mg (3 Ml) Ud) 3 ml INH RQ6 [facility] Last Admin: 02/06/17 20:30 Dose: 3 ml Famotidine (Pepcid) 20 mg PO BID [facility] Last Admin: 02/06/17 17:10 Dose: 20 mg Heparin Sodium (Porcine) (Heparin) 5,000 units SC Q12 [facility] Last Admin: 02/06/17 09:40 Dose: 5,000 units Azithromycin 500 mg/ Sodium (Chloride) 250 mls @ 250 mls/hr IVPB DAILY [facility] Last Admin: 02/06/17 09:40 Dose: 250 mls/hr Piperacillin Sod/Tazobactam Sod (Zosyn 3.375 Gm Iv Premix) 3.375 gm in 50 mls @ 100 mls/hr IVPB Q6 [facility] Last Admin: 02/06/17 17:10 Dose: 100 mls/hr Saccharomyces Boulardii (Florastor) 250 mg PO BID [facility] Last Admin: 02/06/17 17:10 Dose: 250 mg - Labs Labs: 02/06/17 07:13 02/06/17 07:13
[2017-02-07] MEDS: Piperacill/Tazo 3.375gm in Dex 3.375 GM/50 ML BAG IVPB SCH ×4 (01:00→18:59)
[2017-02-07] MEDS: Acetylcysteine 20% Inhal Soln (4ml) INH SCH ×3 (01:33→13:27)
[2017-02-07 07:47] LABS: CHLORIDE 100 mmol/L (98-107); SODIUM 138 mmol/L (132-148)
[2017-02-07 07:49] LABS: GFR AFRICAN-AMERICAN > 60
[2017-02-07 07:50] LABS: ALB/GLOB RATIO 1.6 (1.0-2.1); ALKALINE PHOSPHATASE 64 U/L (38-126); ALT/SGPT 67 U/L (9-52); AST/SGOT 30 U/L (14-36); BILIRUBIN,TOTAL 0.7 mg/dL (0.2-1.3); BLOOD UREA NITROGEN 17 mg/dL (7-17); CALCIUM 9.1 mg/dl (8.6-10.4); CARBON DIOXIDE 25 mmol/L (22-30); GLUCOSE,RANDOM 90 mg/dL (65-105); PHOSPHOROUS 4.9 mg/dL (2.5-4.5); TOTAL PROTEIN 7.3 g/dL (6.3-8.3)
[2017-02-07 07:55] LABS: BASO % 0.5 % (0.0-2.0); EOS # 0.3 K/uL (0.0-0.7); EOS % 3.7 % (0.0-4.0); HEMATOCRIT 40.4 % (34.0-47.0); LYMPH # 2.4 K/uL (1.0-4.3); LYMPH % 33.3 % (20.0-40.0); MEAN CELL VOLUME 87.1 fL (81.0-99.0); MEAN CORPUSCULAR HEMOGLOBIN 29.9 pg (27.0-31.0); MEAN CORPUSCULAR HGB CONC 34.3 g/dL (33.0-37.0); MEAN PLATELET VOLUME 7.2 fL (7.2-11.7); MONO # 0.4 K/uL (0.0-0.8); MONO % 5.2 % (0.0-10.0); WHITE BLOOD COUNT 7.2 K/uL (4.8-10.8)
[2017-02-07] MEDS: Albuterol-Ipratrop 3 mg / 0.5 (3 ml) UD INH SCH ×2 (08:07→13:27)
--- NOTE | 2017-02-07 09:36 | CP.PCM.PN ---
Subjective - Date & Time of Evaluation Date of Evaluation: 02/07/17 Time of Evaluation: 09:24 - Subjective Subjective: Medicine Progress note for Dr. Shaffer HPI: Objective - Vital Signs/Intake and Output Vital Signs (last 24 hours): Temp Pulse Resp BP Pulse Ox 98.4 F 71 20 99/60 L 93 L 02/07/17 08:00 02/07/17 08:00 02/07/17 08:00 02/07/17 08:00 02/07/17 08:00 Intake and Output: 02/07/17 02/07/17 06:59 18:59 Intake Total 750 Balance 750 - Medications Medications: Current Medications Acetylcysteine (Acetylcysteine 20%) 4 ml INH RQ6 [facility] Last Admin: 02/07/17 08:19 Dose: Not Given Albuterol/Ipratropium (Duoneb 3 Mg/0.5 Mg (3 Ml) Ud) 3 ml INH RQ6 [facility] Last Admin: 02/07/17 08:07 Dose: 3 ml Famotidine (Pepcid) 20 mg PO BID [facility] Last Admin: 02/06/17 17:10 Dose: 20 mg Heparin Sodium (Porcine) (Heparin) 5,000 units SC Q12 [facility] Last Admin: 02/06/17 21:24 Dose: 5,000 units Azithromycin 500 mg/ Sodium (Chloride) 250 mls @ 250 mls/hr IVPB DAILY [facility] Last Admin: 02/06/17 09:40 Dose: 250 mls/hr Piperacillin Sod/Tazobactam Sod (Zosyn 3.375 Gm Iv Premix) 3.375 gm in 50 mls @ 100 mls/hr IVPB Q6 [facility] Last Admin: 02/07/17 06:35 Dose: 100 mls/hr Pneumococcal Polyvalent Vaccine (Pneumovax 23 Vaccine) 0.5 ml IM .ONCE ONE Stop: 02/08/17 14:01 Saccharomyces Boulardii (Florastor) 250 mg PO BID [facility] Last Admin: 02/06/17 17:10 Dose: 250 mg - Labs Labs: 02/07/17 07:05 02/07/17 07:05 Assessment and Plan - Assessment and Plan (Free Text) Assessment: Shortness of breath secondary to Pneumonia vs TB vs. Bronchiectasis vs. Pulmonary fibrosis * Chest x-ray: Intersitial pneumonitis bilaterally with underlying fibrosis. * AFB sputum cultures x3 * Pulm (Mike) * Zosyn 3.375 IVP q6 * Azithromycin 500mg IVPB daily * ID (Mangia) * Rocephin 1gm q12h -DC'd * Duoneb [facility] * Acetylcysteine 4ml INH Rq6 * ProCal 0.05 * Quantiferon gold * PPD negative * Strep cultures-NEGATIVE * Sputum Mycobacterium DNA by PCR * Ur. L.Pneumophila Ag. NEGATIVE * INFLUENZA A&B NEGATIVE Hemoptysis * likely 2/2 to bronchiactasis * Sputum culture Gram stain shows Many polymorponuclear WBC's, Moderate Epithelial cells, moderate Gram positive cocci in chains, few gram negative rods , and few yeast. * Culture follow up Prophylaxis * Pepcid 20mg daily * Heparin SC * Respiratory Isolation * SCDs * Florastor BID Dispo: Will need to get [place] or [facility] involved before DC.
--- NOTE | 2017-02-07 09:53 | CP.PCM.PN ---
Subjective - Date & Time of Evaluation Date of Evaluation: 02/07/17 Time of Evaluation: 09:00 - Subjective Subjective: Pulmonology Note for Dr. Mckeon's Service Patient seen and examined at bedside this morning. Patient reports productive cough, with no blood tinged sputum. Denied chills, headache, chest pain, SOB, abdominal pain, n/v/d/c, or urinary symptoms. Objective - Vital Signs/Intake and Output Vital Signs (last 24 hours): Temp Pulse Resp BP Pulse Ox 98.4 F 71 20 99/60 L 93 L 02/07/17 08:00 02/07/17 08:00 02/07/17 08:00 02/07/17 08:00 02/07/17 08:00 Intake and Output: 02/07/17 02/07/17 06:59 18:59 Intake Total 750 Balance 750 - Medications Medications: Current Medications Acetylcysteine (Acetylcysteine 20%) 4 ml INH RQ6 [facility] Last Admin: 02/07/17 08:19 Dose: Not Given Albuterol/Ipratropium (Duoneb 3 Mg/0.5 Mg (3 Ml) Ud) 3 ml INH RQ6 [facility] Last Admin: 02/07/17 08:07 Dose: 3 ml Famotidine (Pepcid) 20 mg PO BID [facility] Last Admin: 02/06/17 17:10 Dose: 20 mg Heparin Sodium (Porcine) (Heparin) 5,000 units SC Q12 [facility] Last Admin: 02/06/17 21:24 Dose: 5,000 units Azithromycin 500 mg/ Sodium (Chloride) 250 mls @ 250 mls/hr IVPB DAILY [facility] Last Admin: 02/06/17 09:40 Dose: 250 mls/hr Piperacillin Sod/Tazobactam Sod (Zosyn 3.375 Gm Iv Premix) 3.375 gm in 50 mls @ 100 mls/hr IVPB Q6 [facility] Last Admin: 02/07/17 06:35 Dose: 100 mls/hr Pneumococcal Polyvalent Vaccine (Pneumovax 23 Vaccine) 0.5 ml IM .ONCE ONE Stop: 02/08/17 14:01 Saccharomyces Boulardii (Florastor) 250 mg PO BID [facility] Last Admin: 02/06/17 17:10 Dose: 250 mg - Labs Labs: 02/07/17 07:05 02/07/17 07:05 - Additional Findings Additional findings: - Constitutional Appears: Non-toxic, No Acute Distress - Head Exam Head Exam: ATRAUMATIC, NORMAL INSPECTION - Eye Exam Eye Exam: EOMI - ENT Exam ENT Exam: Mucous Membranes Moist - Respiratory Exam Respiratory Exam: Decreased Breath Sounds, NORMAL BREATHING PATTERN. absent: Accessory Muscle Use, Clear to Ausculation Bilateral, Rales, Rhonchi, Wheezes, Respiratory Distress - Cardiovascular Exam Cardiovascular Exam: REGULAR RHYTHM, +S1, +S2 - GI/Abdominal Exam GI & Abdominal Exam: Soft, Tenderness, Normal Bowel Sounds. absent: Distended, Firm, Guarding - Extremities Exam Extremities Exam: Normal Inspection - Neurological Exam Neurological Exam: Alert, Awake, Normal Gait, Oriented x3 - Psychiatric Exam Psychiatric exam: Normal Affect, Normal Mood - Skin Skin Exam: Dry, Intact, Normal Color, Warm Assessment and Plan - Assessment and Plan (Free Text) Plan: (1) Pneumonia Assessment & Plan: Imaging: CT chest showed b/l upper lobe pleural thickening, bronchiactasis and fibrotic lesions. Results: Procalcitonin negative Influenza negative Negative Legionella/Strep pneumoniae AFB- negative f/u mycoplasma Medications: Ceftriaxone 1 gram IVPB Q12 hours - discontinued Azithromycin 500mg IVPB daily Zosyn 3.375gm IVPB Q6 hours for pseudomonal coverage Duonebs adam (2) Hemoptysis Assessment & Plan: Hemoptysis likely secondary to bronchiactasis Imaging: CT chest showed b/l upper lobe pleural thickening, bronchiactasis and fibrotic lesions. Results: Procalcitonin negative Influenza negative Negative Legionella/Strep pneumoniae AFB- negative f/u mycoplasma PPD - negative AFB sputum cultures - negative f/u quantiferon gold Medications: Ceftriaxone 1 gram IVPB Q12 hours - discontinued Azithromycin 500mg IVPB daily Zosyn 3.375gm IVPB Q6 hours for pseudomonal coverage Duonebs adam (3) Bronchiectasis Spoke with Primary team- discussed patient can be discharged with Cipro 500mg PO BID x 5 days, with advair, and albuterol. Ashley Romero Dr., DO, PGY-1
[2017-02-07] MEDS: Azithromycin 500 MG in Sodium Chloride 0.9% 250 ML IVPB SCH (10:04)
[2017-02-07] MEDS: Saccharomyces Boulardi 250 mg Cap PO SCH ×2 (10:04→18:59)
[2017-02-07] MEDS ORDERED: Pneumococcal 23-Valent Vaccine IM ONE (14:00)
--- NOTE | 2017-02-07 14:23 | CP.PCM.PN ---
Subjective - Date & Time of Evaluation Date of Evaluation: 02/07/17 Time of Evaluation: 02:00 - Subjective Subjective: dictated Objective - Vital Signs/Intake and Output Vital Signs (last 24 hours): Temp Pulse Resp BP Pulse Ox 98.4 F 71 20 99/60 L 93 L 02/07/17 08:00 02/07/17 08:00 02/07/17 08:00 02/07/17 08:00 02/07/17 08:00 Intake and Output: 02/07/17 02/07/17 06:59 18:59 Intake Total 750 Balance 750 - Medications Medications: Current Medications Acetylcysteine (Acetylcysteine 20%) 4 ml INH RQ6 [facility] Last Admin: 02/07/17 13:27 Dose: Not Given Albuterol/Ipratropium (Duoneb 3 Mg/0.5 Mg (3 Ml) Ud) 3 ml INH RQ6 [facility] Last Admin: 02/07/17 13:27 Dose: Not Given Famotidine (Pepcid) 20 mg PO BID [facility] Last Admin: 02/07/17 10:04 Dose: 20 mg Heparin Sodium (Porcine) (Heparin) 5,000 units SC Q12 [facility] Last Admin: 02/07/17 10:04 Dose: 5,000 units Azithromycin 500 mg/ Sodium (Chloride) 250 mls @ 250 mls/hr IVPB DAILY [facility] Last Admin: 02/07/17 10:04 Dose: 250 mls/hr Piperacillin Sod/Tazobactam Sod (Zosyn 3.375 Gm Iv Premix) 3.375 gm in 50 mls @ 100 mls/hr IVPB Q6 [facility] Last Admin: 02/07/17 12:56 Dose: 100 mls/hr Pneumococcal Polyvalent Vaccine (Pneumovax 23 Vaccine) 0.5 ml IM .ONCE ONE Stop: 02/08/17 14:01 Saccharomyces Boulardii (Florastor) 250 mg PO BID [facility] Last Admin: 02/07/17 10:04 Dose: 250 mg - Labs Labs: 02/07/17 07:05 02/07/17 07:05
[2017-02-07 15:45] LABS: FECAL LEUKOCYTES NEGATIVE (NEGATIVE)
[2017-02-07 16:27] VITALS: BP 100/64; PULSE 75; TEMP 97.9; O2SAT 97
[2017-02-07 18:02] LABS: C DIFF TOXIN A B NEGATIVE (NEGATIVE)
--- NOTE | 2017-02-07 18:59 | CP.PCM.DIS ---
Provider - Provider Date of Admission: 02/04/17 18:13 Attending physician: Kevin Shaffer MD Consults: ID: Paul Pulm: Mike Time Spent in preparation of Discharge (in minutes): 45 Hospital Course - Lab Results Lab Results: Micro Results 02/05/17 Unknown Sputum Gram Stain - Final 02/05/17 Unknown Sputum Sputum Culture - Preliminary Staphylococcus Aureus 02/05/17 08:42 Other: Please Indicate Mycobacterial Culture - Preliminary Most Recent Lab Values WBC 7.2 K/uL (4.8-10.8) 02/07/17 07:05 RBC 4.64 Mil/uL (3.80-5.20) 02/07/17 07:05 Hgb 13.8 g/dL (11.0-16.0) 02/07/17 07:05 Hct 40.4 % (34.0-47.0) 02/07/17 07:05 MCV 87.1 fL (81.0-99.0) 02/07/17 07:05 MCH 29.9 pg (27.0-31.0) 02/07/17 07:05 MCHC 34.3 g/dL (33.0-37.0) 02/07/17 07:05 RDW 13.0 % (11.5-14.5) 02/07/17 07:05 Plt Count 328 K/uL (130-400) 02/07/17 07:05 MPV 7.2 fL (7.2-11.7) 02/07/17 07:05 Neut % (Auto) 57.3 % (50.0-75.0) 02/07/17 07:05 Lymph % (Auto) 33.3 % (20.0-40.0) 02/07/17 07:05 Josephine % (Auto) 5.2 % (0.0-10.0) 02/07/17 07:05 Eos % (Auto) 3.7 % (0.0-4.0) 02/07/17 07:05 Baso % (Auto) 0.5 % (0.0-2.0) 02/07/17 07:05 Neut # 4.1 K/uL (1.8-7.0) 02/07/17 07:05 Lymph # 2.4 K/uL (1.0-4.3) 02/07/17 07:05 Josephine # 0.4 K/uL (0.0-0.8) 02/07/17 07:05 Eos # 0.3 K/uL (0.0-0.7) 02/07/17 07:05 Baso # 0.0 K/uL (0.0-0.2) 02/07/17 07:05 Sodium 138 mmol/L (132-148) 02/07/17 07:05 Potassium 4.0 mmol/L (3.6-5.2) 02/07/17 07:05 Chloride 100 mmol/L (98-107) 02/07/17 07:05 Carbon Dioxide 25 mmol/L (22-30) 02/07/17 07:05 Anion Gap 16 (10-20) 02/07/17 07:05 BUN 17 mg/dL (7-17) 02/07/17 07:05 Creatinine 0.7 mg/dL (0.7-1.2) 02/07/17 07:05 Est GFR ( Amer) > 60 02/07/17 07:05 Est GFR (Non-Af Amer) > 60 02/07/17 07:05 Random Glucose 90 mg/dL (65-105) 02/07/17 07:05 Calcium 9.1 mg/dl (8.6-10.4) 02/07/17 07:05 Phosphorus 4.9 mg/dL (2.5-4.5) H 02/07/17 07:05 Magnesium 2.0 mg/dL (1.6-2.3) 02/07/17 07:05 Total Bilirubin 0.7 mg/dL (0.2-1.3) 02/07/17 07:05 AST 30 U/L (14-36) 02/07/17 07:05 ALT 67 U/L (9-52) H D 02/07/17 07:05 Alkaline Phosphatase 64 U/L (38-126) 02/07/17 07:05 Total Protein 7.3 g/dL (6.3-8.3) 02/07/17 07:05 Albumin 4.5 g/dL (3.5-5.0) 02/07/17 07:05 Globulin 2.8 gm/dL (2.2-3.9) 02/07/17 07:05 Albumin/Globulin Ratio 1.6 (1.0-2.1) 02/07/17 07:05 Procalcitonin 0.05 NG/ML (0.19-0.49) L 02/05/17 11:49 Stool Leukocytes, Qual Negative (NEGATIVE) 02/07/17 12:30 C. difficile Ag & Toxin Negative (NEGATIVE) 02/07/17 12:30 HIV 1&2 Antibody Screen Negative (NEGATIVE) 02/07/17 13:44 Influenza Typ A,B (EIA) Negative for flu a/b (NEGATIVE) 02/05/17 19:24 H.influenzae Type B Ag Not required (NEGATIVE) 02/05/17 19:10 Ur L.pneumophila Ag Negative (NEGATIVE) 02/05/17 11:46 N.meningitidis ACY/W135 Not required (NEGATIVE) 02/05/17 19:10 N.meningi B/E.coli K1 Ag Not required (NEGATIVE) 02/05/17 19:10 Group B Strep Antigen Not required (NEGATIVE) 02/05/17 19:10 S. pneumoniae Antigen Negative (NEGATIVE) 02/05/17 19:10 TB Test (QFT) Nil 0.05 IU/mL 02/05/17 11:46 TB Test Mitogen - Nil 8.87 IU/mL 02/05/17 11:46 TB Test TB - Nil 0.04 IU/mL 02/05/17 11:46 TB Test (QFT) Negative (Negative) 02/05/17 11:46 Discharge Exam - Head Exam Head Exam: ATRAUMATIC, NORMAL INSPECTION - Eye Exam Eye Exam: EOMI Pupil Exam: NORMAL ACCOMODATION - ENT Exam ENT Exam: Mucous Membranes Moist - Neck Exam Neck exam: Full Rom - Respiratory Exam Respiratory Exam: Stridor - Cardiovascular Exam Cardiovascular Exam: REGULAR RHYTHM - GI/Abdominal Exam GI & Abdominal Exam: Normal Bowel Sounds, Soft. absent: Distended, Tenderness - Neurological Exam Neurological exam: Alert, Oriented x3 - Psychiatric Exam Psychiatric exam: Normal Affect, Normal Mood - Skin Skin Exam: Dry, Intact, Normal Color, Warm Discharge Plan - Follow Up Plan Condition: STABLE Disposition: HOME/ ROUTINE Instructions: Hemoptysis (GEN), Pneumonia (DC) Additional Instructions: Patient is stable and clear for discharge Please follow up in our clinic in 7-10 days. Please call to make an appointment. The number to the clinic is Please take the following medications: 1. Cipro 500 BID PO for 5 days 2. Zithromax 3. Albuterol 90mcg 2 INH Q6H PRN 4. Advair 250/50 mcg 1 INH 2x/d
[2017-02-08] MEDS ORDERED: Pneumococcal 23-Valent Vaccine IM ONE (14:00)
[2017-02-08 14:32] LABS: MTB RESPIRATORY SOURCE SPUTUM
== END 2017-02-07 20:20 | disposition home or self-care (01) | DRG 191 ==
LOC: C.ER 12:21 → C.9E 18:13 → C.5S 21:59
PROVIDERS: ADMIT Family Medicine; ATTEND Family Medicine
DX: J47.0 Bronchiectasis with acute lower respiratory infection (principal); J18.9 Pneumonia, unspecified organism; R04.2 Hemoptysis; K80.20 Calculus of gallbladder without cholecystitis without obstruction; Z86.11 Personal history of tuberculosis

== ENCOUNTER 2017-09-24 08:15 | Day surgery (SDC) | payer OTHER ==
[2017-09-19 07:48] VITALS: BMI 21.7
[2017-09-24] MEDS ORDERED: Lidocaine Hydrochloride 5 ML INJ ONE (12:23)
[2017-09-24] MEDS ORDERED: ceFAZolin 1 gm FROZEN Premix 2 GM/100 ML ML IVPB ONE (12:23)
[2017-09-24] MEDS ORDERED: Bupivacaine HCl 0.25% PF (30 ml) Inj ONE (12:23)
[2017-09-24] MEDS ORDERED: Lidocaine Hydrochloride 10 ML INJ ONE (12:38)
[2017-09-24] MEDS ORDERED: Propofol 10 mg/ml Inj (20 ML) ONE ×2 (12:50→14:57)
[2017-09-24] MEDS ORDERED: Rocuronium 10 mg/ml (5 ml) ONE (12:50)
[2017-09-24] MEDS ORDERED: Neostigmine Methylsulfate 3mg/3ml Syringe IV ONE (14:41)
--- NOTE | 2017-09-24 15:27 | PCM.SURG1 ---
Surgeon's Initial Post Op Note - Surgeon's Notes Surgeon: Dr. Shaffer Dry Cleaning Manager: Dr. Lyon PGY2 Type of Anesthesia: General Endo Pre-Operative Diagnosis: Chronic Cholecystitis, With colelithiasis Operative Findings: See operative dictation Post-Operative Diagnosis: Chronic Cholecystitis with cholelithiasis Operation Performed: Robotic assisted Cholecystectomy Specimen/Specimens Removed: Gallbladder Estimated Blood Loss: EBL {In ML}: 10 Blood Products Given: N/A Drains Used: No Drains Post-Op Condition: Good Date of Surgery/Procedure: 09/24/17 Time of Surgery/Procedure: 15:27
[2017-09-24] MEDS: HYDROmorphone 0.5 mg/0.5 ml ISec IVP PRN ×4 (15:35→16:38)
[2017-09-24 17:34] VITALS: BP 100/70; PULSE 62; RESP 18; TEMP 97; O2SAT 100
--- NOTE | 2017-09-24 20:55 | PCM.OP ---
Operative Report - Operative Report Date of Surgery/Procedure: 09/24/17 Time of Surgery/Procedure: 15:15 Surgeon: Diane Robles MD Maintenance Helper Utility Engineer: Arnie Lyon DO PGY2 Anesthesia/Sedation: General endotracheal; 1% lidocaine + 0.25% Marcain mix local anesthesia Pre-Operative Diagnosis: Symptomatic cholelithiasis Post-Operative Diagnosis: Symptomatic cholelithiasis Indication for Surgery: This is a 52-year-old female without any prior surgical history with recurrent symptomatic cholelithiasis. Details of HPI in clinical chart. Taken to the operating room for laparoscopic, robotic assisted cholecystectomy. Patient understands the risks and benefits of the procedure as documented in the clinic chart but specifically risk of cystic duct leak and common bile duct injury and has consented to the procedure. Operative Findings: OPERATIVE FINDINGS: Fluid filled gallbladder with large stone in body. No acute inflammation. Cystic duct flow confirmed using Firefly fluorescence prior to clipping and dividing. Clips in place on cystic duct and cystic artery at ed of case without evidence of bleeding or bile leak. Procedure/Operation Description: PROCEDURE PERFORMED: Laparoscopic, Robotic Assisted Cholecystectomy with Intraoperative Indigocyanine florescence. . DETAILS OF OPERATION: The patient was given a preoperative dose of Ancef 2g 20 minutes before the incision. SCD boots were placed for DVT prophylaxis. The patient voided in pre-op immediately prior to surgery and no barragan was placed. An orogastric tube placed in order to empty the stomach after the induction of general anesthesia. Upper body warmer placed. The abdomen was prepped and draped in sterile fashion and in the Supra-umbilical midline, a circumlinear incision was made and the umbilical raphe was identified and the fascia was divided between clamps at its base entering the abdomen in an open fashion. A 11 -mm trocar was inserted in the abdomen and the abdomen was insufflated to 15 mmHg pressure with CO2. An 8mm robotic 30-degree viewing scope was then inserted and the abdomen was generally inspected and there was not found to be any additional signs of pathology. An 8mm port was introduced through the 11mm laparoscopic port. In the right mid abdomen, two 8-mm robotic ports were placed after injection of local anesthetic under direct vision and another 8m robotic port in the left mid-upper abdomen was placed in the similar fashion. THe patient was placed in slight reverse trendelberg and right side up. A face protecting foam was placed over the patient's face and the robot was docked to the patient. Robotic instruments were then inserted under direct visualization. A prograsp retractor in the right lateral port, fenestrated bipolar in right medial port, and monopolar cautery in the left abdominal port. . The fundus of the gallbladder was identified beneath the liver edge and retracted to the right upper quadrant with the prograsp grasper and locked in place. The neck of the gallbladder was visualized. There were minimal omental adhesions to the gallbladder that were taken down with a cominbation of blunt dissection and monopolar hook cautery. The peritoneal attachments from the lateral portion of the gallbladder/cystic duct junction were gently dissected and divided to open up the [place]. The [place] was then dissected up onto the liver bed posterior to the gallbladder in order to ensure that this was the cystic duct and not tenting of the common bile duct. The peritoneal attachments on the medial portion of the gallbladder going up to the side of the liver were taken. The critical view was obtained. The duct was then doubly clipped and ligated and the clips were inspected. The cystic artery was identified and was divided between clips. The gallbladder was dissected free from the liver bed using electrocautery and placed this in an endo catch bag. Once this was done, the abdomen was reinspected. The clips were in good position on the cystic artery and duct stumps. Robotic instruments were withdrawn under direct vision and the robot was then undocked from the patient. Robotic Camera was resinserted throuhg the left abdominal port and gallbladder specimen was withdrawn through the umbilical port. Once this was done, the ports were removed from the abdomen and the abdomen was desufflated with air. The umbilical port was closed with a [id number] Vicryl suture and the skin incisions were closed with 4-0 Vicryl sutures and finally dermabond. The patient tolerated the procedure well and was extubated in the operating room and brought to recovery in stable condition. I was present for the entirety of the operation. All sponge, needle and instrument counts were correct. Estimated Blood Loss: 15 Complications: none Specimen: Gallbladder Discharge & Condition: Stable to recovery
== END 2017-09-24 18:54 | disposition home or self-care (01) ==
LOC: C.SDS 08:15
PROVIDERS: ATTEND Surgery
DX: K80.12 Calculus of gallbladder with acute and chronic cholecystitis without obstruction (principal); K82.8 Other specified diseases of gallbladder; R91.8 Other nonspecific abnormal finding of lung field; E55.9 Vitamin D deficiency, unspecified; R79.89 Other specified abnormal findings of blood chemistry; Z86.11 Personal history of tuberculosis; Z87.01 Personal history of pneumonia (recurrent); Z98.890 Other specified postprocedural states; Z79.899 Other long term (current) drug therapy
CPT/HCPCS: 47563; 88304; J0690; J1170; J1885; J2001; J2405; J2704; J2710; J3010

== ENCOUNTER 2018-07-14 10:33 | Outpatient (CLI) | payer OTHER | END 2018-07-14 10:34 | disposition home or self-care (01) | LOC: C.CTH 10:33 | DX: R10.9 Unspecified abdominal pain (principal) ==

== ENCOUNTER 2018-08-18 07:05 | Outpatient (CLI) | payer OTHER | END 2018-08-18 07:06 | disposition home or self-care (01) | LOC: C.RADH 07:05 | DX: R07.9 Chest pain, unspecified (principal); M54.6 Pain in thoracic spine; M25.511 Pain in right shoulder; M54.2 Cervicalgia ==